=== PATIENT | male | born 2000 ===

== ENCOUNTER 2024-04-03 14:40 | Emergency (ER) | payer OTHER, SELFPAY ==
--- NOTE | ~2024-04-03 | XR_ITS ---
EXAMINATION: XR CHEST CLINICAL INFORMATION: Difficulty breathing COMPARISON: None available. TECHNIQUE: 2 views of the chest were obtained. FINDINGS: Lungs grossly clear. No pleural effusions. Heart and pulmonary vessels normal. XR/XR chest 2V IMPRESSION: No active disease.
[2024-04-03 14:53] VITALS: BP 126/67; PULSE 68; RESP 15; TEMP 36.7; O2SAT 98; BMI 18.1
[2024-04-03 16:00] VITALS: BP 116/49; PULSE 60; RESP 18; TEMP 36.8; O2SAT 99
--- NOTE | 2024-04-03 16:17 | ED_ITS ---
HPI - General Adult General Chief complaint: Headache Stated complaint: WEAK, WILLIS, MUSCLE SPASM/ NUMB AT WORK Time Seen by Provider: 04/03/24 14:53 Source: patient Mode of arrival: ambulatory Limitations: language barrier History of Present Illness ED Provider: Dr. Spencer HPI narrative: patient states at work he developed shortness of breath, he felt like he could not breath. He then developed perioral numbness, bilateral hand and feet numbness. After about 30 minutes he felt better. Patient denies cough or wheeze and states the he does not suffer from panic attacks or hyperventilation. Onset (ago): minute(s) Related Data Allergies Allergy/AdvReac Type Severity Reaction Status Date / Time No Known Allergies Allergy Verified 04/03/24 15:18 Review of Systems Review of Systems: Yes all other systems are reviewed and are negative Neurologic: Denies Sensory deficit (Neuro) [facility] Social History Social History Advance Directives: No Advance Directives Information Provided: No Physical Exam ED Vital Signs: Vital Signs - 24 hr 04/03/24 14:53 Temperature 98.0 F Pulse Rate 68 Respiratory Rate 15 Blood Pressure 126/67 Pulse Oximetry 98 Oxygen Delivery Method Room Air BMI result Body Mass Index 18.1 Const General: healthy appearing Nutritional Appearance: average body habitus Orientation/consciousness: oriented to person and patient oriented x3 Limitations: no limitations HENMT Head: Yes normal to inspection Ears: external ears normal General nose exam: Normal external nose present Mouth: Normal oral and palatal mucosa present and oropharynx normal Throat: Yes posterior oropharynx normal Eyes General: appearance normal, both eyes and all related structures Neck Neck: Yes normal visual inspection Chest Chest palpation & inspection: normal inspection of the chest Resp Auscultation: clear to auscultation bilaterally Cardio Jugular venous distension: no JVD Rate: regular rate Rhythm: regular rhythm Heart sounds: S1 normal heart sound present and S2 normal heart sound present GI Inspection: Yes normal to inspection Palpation (GI): Soft to palpation, nontender and No hepatosplenomegaly present Auscultation: normal bowel sounds General: Yes no CVA tenderness Back/Spine/Pelvis Back: no CVA tenderness Skin General skin exam: no rashes or lesions noted Neuro General: oriented to person and patient oriented x3 Cranial nerves: Yes CN's II-XII intact bilaterally Motor exam (neuro): 5/5 motor strength present throughout Sensory Exam: No Sensory deficit (Neuro) Extrem General: Yes normal to inspection Psych Appearance: grossly normal Course Reevaluation(s) Reevaluation #1: patient with hyperventilation and likely panic attack, will check xray and electrolytes and most likely will be discharged home. Labs still pending Time: 16:22 Medical Decision Making Differential Diagnosis Differential Diagnoses: The differential diagnosis associated with the presentation includes (hyperventilation, panic attack, electrolyte abnormality, pneumonia) Admission/Observation Consideration of admission/observation: Escalation of care including admission/observation considered (upon arrival patient was considered for admission) Independent Interpretation I performed an independent interpretation of an: Plain X-Ray (CXR no infiltrate) Independent Historian Clinical information obtained from an independent historian. History obtained from or confirmed by: Friend and EMS Prescription Management I considered prescription management with: Antibiotic (no evidence of pneumonia) Discharge Plan Discharge Clinical Impression: Hyperventilation Patient Disposition: Still a Patient Print Language: Yoruba
[2024-04-03 16:32] LABS: MANUAL DIFF FLAG NO
[2024-04-03 16:41] LABS: Basophils Absolute Auto 0.1 X10*3/uL (0.0-0.2); Basophils Percent Auto 0.8 % (0-2); Eosinophils Percent Auto 0.3 % (0-4); Hematocrit 43.1 % (42.0-52.0); Hemoglobin 14.6 g/dl (14.0-18.0); Imm Gran Abs Auto 0.02 X10*3/uL (0.00-0.03); Imm Gran Pct Auto 0.2 % (0.0-0.4); Lymphocytes Absolute Auto 1.5 X10*3/uL (1.2-4.9); Lymphocytes Percent Auto 17.7 % (20-40); Mean Corpuscular HGB Conc 33.9 g/dl (31.0-36.0); Mean Corpuscular Hemoglobin 29.3 pg (27.0-33.0); Mean Corpuscular Volume 86.5 fL (80.0-98.0); Mean Platelet Volume 10.6 fL (9.4-12.4); Monocytes Absolute Auto 0.6 X10*3/uL (0.1-1.2); Neutrophils Absolute Auto 6.4 x10*3/uL (2.0-8.3); Platelet Count 206 X10*3/uL (160-400); Red Blood Count 4.98 X10*6/uL (4.60-5.80); Red Cell Distribution Width 13.7 % (11.0-16.0); White Blood Count 8.7 X10*3/uL (4.8-10.8)
[2024-04-03 16:48] LABS: Anion Gap 9 (12-20); Blood Urea Nitrogen 14 mg/dL (9-16); Calcium 9.3 mg/dL (8.4-10.2); Carbon Dioxide 26 mmol/L (22-29); Chloride 109 mmol/L (96-108); Creatinine Clr Calc Pharmacy 72.9; Estimated Glomerular Filt Rate > 60; Glucose Random 84 mg/dL (60-115); Potassium 3.5 mmol/L (3.3-5.1); Sodium 140 mmol/L (135-145)
== END 2024-04-03 18:13 | disposition still patient (30) ==
PROVIDERS: Emergency Medicine; Emergency Provider Emergency Medicine
DX: R06.4 Hyperventilation (principal); R53.1 Weakness; R06.02 Shortness of breath; R20.0 Anesthesia of skin
CPT/HCPCS: 36415; 71046; 80048; 85025; 99283

== ENCOUNTER 2024-04-04 15:09 | Emergency (ER) | payer OTHER, SELFPAY ==
[2024-04-04 15:18] VITALS: BP 111/58; BP 118/74; PULSE 73; PULSE 80; RESP 18; TEMP 37.1; O2SAT 100; O2SAT 97; BMI 20.2
--- NOTE | 2024-04-04 15:46 | ED_ITS ---
HPI - SOB/Dyspnea General Chief Complaint: Dyspnea Stated Complaint: SOB WORSENING, SEEN Time Seen by Provider: 04/04/24 15:18 Source: patient Mode of arrival: ambulatory Limitations: no limitations History of Present Illness HPI Narrative: 21-year-old male presents for 2nd time in 2 days. Patient states he was at work when he had severe back pain started having rapid breathing and hyperventilation which has since resolved he did show me a picture is going on he denies any falls or injuries she notes she has been cough fever states he is feeling better at this time there is no falls no reason for his back pain. Related Data Allergies Allergy/AdvReac Type Severity Reaction Status Date / Time No Known Allergies Allergy Verified 04/04/24 15:23 Physical Exam Vital Signs: Vital Signs: Last Vital Signs Temp 98.7 F 04/04/24 15:18 Pulse 73 04/04/24 15:18 Resp 18 04/04/24 15:18 BP 111/58 L 04/04/24 15:18 Pulse Ox 97 04/04/24 15:18 O2 Del Method Room Air 04/04/24 15:18 BMI result Body Mass Index 20.2 Neurological exam: CN II- XII tested. Patient is alert and oriented to person place and time. Patient has no dysphagia or dysarthia, denies good vision in all four vision rudolph no nystagmus on exam, good strength to upper and lower extremities with normal reflexes to brachioradialis, wrist, patella and achilles. Negative romberg, good finger to nose and heel to edwards. General: Well-appearing well-nourished in no signs of distress HEENT: Normocephalic atraumatic Neck: No signs of JVD, no masses no tenderness or lymphadenopathy Cardiovascular: Regular rate and rhythm Respiratory: Clear to auscultation bilaterally Abdomen: Soft nontender no masses Extremities: Normal pedal pulses no signs of edema Skin: Dry warm no rashes Back: No tenderness full ROM Medical Decision Making Medical Decision Making MDM Narrative: Patient already had a workup yesterday his symptoms have resolved he showed me a video happened today I do still feel he is safe to go home I will discharge home once he is registered. Differential Diagnosis Differential Diagnoses: The differential diagnosis associated with the presentation includes Hyperventilation panic attack Discharge Plan Discharge Clinical Impression: Panic attack, Anxiety hyperventilation Patient Disposition: Home, Self-Care Instructions: Anxiety (ED), Hyperventilation (ED) Additional Instructions: You were seen to the emergency department for panic attack. You had rapid breathing which which resolved. If you have any other concerns please return to emergency department. Print Language: [place]
[2024-04-04 16:10] VITALS: BP 113/50; PULSE 69; RESP 18; TEMP 37.1; O2SAT 99
== END 2024-04-04 16:13 | disposition home or self-care (01) ==
PROVIDERS: Emergency Provider Student in an Organized Health Care Education/Training Program
DX: F41.0 Panic disorder [episodic paroxysmal anxiety] (principal); F41.9 Anxiety disorder, unspecified; R06.4 Hyperventilation; M54.9 Dorsalgia, unspecified
CPT/HCPCS: 99283

== ENCOUNTER 2024-04-05 14:22 | Outpatient (AMB) | payer OTHER, SELFPAY ==
--- NOTE | 2024-04-05 14:32 | MHC.OFFWIV ---
Intake Vital Signs 04/05/24 14:33 Height 5 ft 5 in Weight 121 lb BMI 20.1 BP 116/70 Blood Pressure Location Lt brachial Position Sitting Pulse 103 H Pulse Source Pulse Oximeter Temp 98.5 F Temp Source Temporal Artery Scan Pulse Oximetry (%) 99 Oxygen Delivery Method Room Air Intake Visit Reasons: shortness of breath, tensing of body- see com Intake Note: pt c/o SOB, body tensing. Seen at [facility] ED 04/03 and 04/04 Patient Tobacco Use Status: Never used Tobacco Allergies No Known Allergies Allergy (Verified 04/05/24 14:32) Do you need a note to return to daycare/school/sports/work: No HPI HPI Comments History of Present Illness Details 23 y/o male patient who presents to the walk in clinic with c/o SOB and difficulty breathing. Pt is accompanied by [id number]. Pt speaks [place]ese only. Per mother; Pt smoked some marijuana Monday - a friend of his bought it from a dispensary. Pt started having Seizure like symptoms , On/off. Describes muscle tightening, head and upper body shaking. Hyperventilating and feeling like his jaw and muscle locking. No postictal symptoms observed. No urinary or bowel incontinence. Pt able to recall and aware of his surrounding. No LOC and No tongue bitting. Pt was seen and evaluated at [facility] once and [facility] twice. He was immediately discharged with a diagnosis of Panic Attack. Pt lives home with step mother, father and GF. Denies any h/o heroine or Cocaine use. No alcohol use. No stress in the family. He moved from [place] this past December. [facility] Social History Patient Tobacco Use Status: Never used Tobacco Review of Systems Const All systems reviewed & are unremarkable except as noted in HPI and below Physical Exam Vital Signs: Last Vital Signs Temp 98.5 F 04/05/24 14:33 Pulse 103 H 04/05/24 14:33 BP 116/70 04/05/24 14:33 Pulse Ox 99 04/05/24 14:33 Oxygen Delivery Method Room Air 04/05/24 14:33 BMI result Body Mass Index 20.1 Const Other: Tonic like body movements. Shaking and muscle tightning. Able to regain alertness, able to understand and follow commands. Episodes lasting few minutes. Skin General skin exam: no rashes or lesions noted Psych Attitude: cooperative Assessment & Plan Assessment & Plan (1) SOB (shortness of breath): Code(s): R06.02 - Shortness of breath Plan: ECG Abnormal. But Pt was having an episode. Pt sent to ED via Ambulance. Coding Level of Care Code Est Pt Level 3 (35171) Diagnoses SOB (shortness of breath) R06.02 Time Spent (min) 15
[2024-04-05 14:33] VITALS: BP 116/70; PULSE 103; TEMP 36.9; O2SAT 99; BMI 20.1
== END 2024-04-05 15:50 | disposition home or self-care (01) ==
PROVIDERS: Visit Provider Nurse Practitioner Family
DX: R06.02 Shortness of breath (principal)
CPT/HCPCS: 99213

== ENCOUNTER 2024-04-15 14:45 | Outpatient (AMB) | payer OTHER, SELFPAY ==
--- NOTE | 2024-04-15 14:50 | MHC.PC.OV ---
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 Infection Control Rn Required: Yes Infection Control Rn Language: Emirati Accompanied by: Mother Allergies No Known Allergies Allergy (Verified 04/15/24 15:22) Medication List - Last Reviewed 04/15/24 by Beulah jacobsin (vitamin B12) 1,000 mcg PO DAILY paroxetine HCl 10 mg PO DAILY Tobacco use date assessed: 04/15/24 Dental Screening Dental Screen Date: 04/15/24 Did you have a dental visit in the last 12 months?: Yes Did you have a dental problem in the last 6 months where you did not have access to dental care?: No Was dental information given to patient?: Patient has dentist HPI HPI Comments History of Present Illness Details New patient Emirati-speaking only Accompanied by his mother Prior PCP:?He moved to [facility] from [place] in 12/2023. He did not have a PCP Last office visit/CPE: No history Acute issue(s): None He was recently evaluated and treated twice at [facility] ED, once at [facility] walk-in clinic, and once at [facility] ED for shortness of breath, difficulty breathing, and generalized stiffening and shaking without loss of consciousness. Imaging, including head CT and EEG, and labs were unremarkable. U tox was negative. His symptoms were deemed stress induced and was prescribed Praroxetine 10 mg and vitamin B12 1000 mcg daily at [facility] ED He notes that he has been taking Paroxetine as prescribed without adverse reactions. He reports improved symptoms anxiety/stress symptoms. His notes that the patients symptoms (difficultly breathing, shortness of breath, and generalized stiffening) would make him unable to physically function without assistance. She notes that the patient experienced those symptoms between 04/03/2024 and after he started taking Prozac on 04/08/2024. He notes that he generally eats healthy and sleeps well. He was lifting weights routinely until his recent symptoms No acute symptoms at this time PMHx: None SurgHx: None FHx: Dad: Asthma. MGM: Diabetes. PGM: Cardiovascular disease SocHx: Nonsmoker. Drinks 1 beer weekly . Smokes 1 gm cannabis 3-4 times weekly. 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 1. Little interest or pleasure in doing things: not at all 2. Feeling down, depressed, or hopeless: not at all 3. Trouble falling or staying asleep, or sleeping too much: several days 4. Feeling tired or having little energy: several days 5. Poor appetite or overeating: several days 6. Feeling bad about yourself - or that you are a failure or have let yourself or your family down: not at all 7. Trouble concentrating on things, such as reading the newspaper or watching television: not at all 8. Moving or speaking so slowly that other people could have noticed. Or the opposite - being so fidgety or restless that you have been moving around a lot more than usual: several days 9. Thoughts that you would be better off or of hurting yourself in some way: not at all Total score: 4 Depression Screening Interpretation: Negative Depression Screening Done: Yes Source: Developed by Drs. Kenyon Mascorro, Tita Zavala, Tre Segovia and colleagues, with an educational brian from [employer]. Thrive Questionnaire Date Thrive assessed: 04/15/24 I am a: Patient What is your living situation today?: I have a steady place to live Within the past 12 months, did the food you bought not last and you didn't have the money to get more?: Never true Within the past 12 months, did you worry whether your food would run out before you got money to buy more?: Never true Do you have trouble paying for medicines?: No Do you have trouble getting transportation to medical appointments?: No Do you have trouble paying your heating and electricity bill?: No Do you have trouble taking care of your child, family member or friend?: No Do you have trouble with day-to-day activities such as bathing, preparing meals, shopping, managing finances, etc.?: No Are you currently unemployed and looking for a job?: No Are you interested in more education?: No Please select the resources that you would like help with: None Currently or been in a relationship where the following occur: No concerns reported THRIVE Score: 0 AUDIT C Alcohol Use Questionnaire (AUDIT-C) 1. How often do you have a drink containing alcohol?: 2-4 times a month 2. How many drinks containing alcohol do you have on a typical day when you are drinking?: 1 or 2 3. How often do you have six or more drinks on one occasion?: Never Total Score: 2 Score Reviewed/Action Taken: Yes BALJEET-7 AMB Questionnaire BALJEET-7 Date BALJEET - 7 assessed: 04/15/24 Feeling nervous, anxious, or on edge: 1 = Several days Not being able to stop or control worryin = Not at all Worrying too much about different things: 0 = Not at all Trouble relaxin = Several days Being so restless that it is hard to sit still: 1 = Several days Becoming easily annoyed or irritable: 1 = Several days Feeling afraid as if something awful might happen: 1 = Several days Total BALJEET-7 score (0-4 normal; 5-9 mild; 10-14 moderate; 15-21 severe): 5 Source: Developed by Drs. Kenyon Mascorro, Tita Zavala, Tre Segovia and colleagues, with an educational brian from [employer]. BALJEET-7 Assessment Billing BALJEET-7 Assessment Tool: BALJEET-7 Assessment 53530 Review of Systems Const Details: Denies chills, Denies fatigue, Denies fever(s), Denies headache(s) and Denies weakness HEENT Denies change in vision, Denies dizziness, Denies headache(s), Denies hearing loss, Denies nasal congestion, Denies sinus pain, Denies sinus pressure and Denies sore throat Card Denies chest pain, Denies lightheadedness, Denies dyspnea and Denies other (palpitations) Resp Denies cough, Denies dyspnea and Denies wheezing GI Denies abdominal pain, Denies melena, Denies hematochezia, Denies change in bowel habits, Denies dyspepsia and Denies nausea Denies hematuria and Denies dysuria Musc Denies abnormal gait, Denies myalgias, Denies arthralgias, Denies numbness and Denies tingling Skin/Breast Denies rash, Denies unusual bruising and Denies wounds Neuro Denies abnormal gait, Denies dizziness, Denies headache(s), Denies memory loss, Denies numbness, Denies Sensory deficit (Neuro), Denies tingling and Denies weakness Psych Denies anxiety, Denies depression and Denies memory loss Endo Denies cold intolerance, Denies fatigue, Denies heat intolerance, Denies polydipsia and Denies polyuria Zeferino/Lymph Denies easy bleeding and Denies easy bruising Aller/Immun Denies wheezing Physical exam (Primary Care) Vital Signs: Last Vital Signs Temp 98.1 F 04/15/24 15:02 Pulse 70 04/15/24 15:02 Resp 16 04/15/24 15:02 BP 128/62 04/15/24 15:02 Pulse Ox 98 04/15/24 15:02 Oxygen Delivery Method Room Air 04/15/24 15:02 BMI result Body Mass Index 19.0 Tobacco/Smoking Status: Tobacco use Status Tobacco use date assessed 04/15/24 04/15/24 15:02 Patient Tobacco Use Status Never used Tobacco 04/15/24 15:02 e-Cigarette/Vaping Use Never Used 04/15/24 15:02 PHQ-9: PHQ-9 Score PHQ-9: Total score 4 04/15/24 15:08 Depression Screening Interpretation: Negative Thrive Assessment: Date of Thrive Assessment Date Thrive assessed 04/15/24 04/15/24 15:08 Currently or been in a relationship where the following occur: No concerns reported Const Other: General: no acute distress, well developed, alert and awake Nutritional Appearance: well nourished Orientation/consciousness: patient oriented x3 HENMT Head: Yes normocephalic and Yes atraumatic Ears: hearing grossly normal bilaterally and TM's normal bilaterally General nose exam: Normal external nose present and Normal nares present Mouth: Normal oral and palatal mucosa present and moist mucous membranes Teeth and gingiva: dentition normal Throat: Yes oropharynx normal Eyes Pupils: Equal, round and reactive pupils present and Pupil accommodation reflex normal EOM: EOMs intact bilaterally Neck Neck: Yes normal visual inspection, Yes no lymphadenopathy and Yes trachea midline Thyroid: Thyroid normal Carotids: no bruits Lymphatic: no lymphadenopathy noted Chest Chest palpation & inspection: normal inspection of the chest Resp Effort & Inspection: normal respiratory effort Auscultation: clear to auscultation bilaterally Cardio Rate: regular rate Rhythm: regular rhythm Heart sounds: S1 normal heart sound present, S2 normal heart sound present, no gallops, no murmurs and no rubs Bruits: no abdominal aortic bruits and no carotid bruits GI Palpation (GI): No Abdominal aortic bruit present, Soft to palpation, nontender, No hepatosplenomegaly present and No Rebound tenderness present Auscultation: normal bowel sounds General: Yes no CVA tenderness Back/Spine/Pelvis Back: no CVA tenderness Cervical Spine: cervical ROM normal and No Cervical spine tenderness Thoracic/Lumbar Spine: thoraco-lumbar ROM normal, No pain with thoraco-lumbar ROM, No thoracic spinal tenderness and No lumbar spinal tenderness Skin General: warm and dry. Normal skin color. Normal skin turgor Lesions: no lesions Rashes: no rashes Trauma: no lacerations or abrasions Wounds: no wounds Nails: normal Neuro General: patient oriented x3, gait normal and CN's II-XI intact bilaterally Cranial nerves: Yes Equal, round and reactive pupils present Cognition (Neuro): normal cognition Gait exam (Neuro): Normal gait present Motor exam (neuro): 5/5 motor strength present throughout Sensory Exam: No Sensory deficit (Neuro) Deep tendon reflexes (DTR's): Right patellar reflex intensity grade: 2+ and Left patellar reflex intensity grade: 2+ Extrem General: Yes normal to inspection, No edema and No calf tenderness Psych Appearance: grossly normal Affect: normal affect Attitude: cooperative Thought process: Normal thought process present Assessment and Plan Assessment & Plan (1) Panic attack: Code(s): F41.0 - Panic disorder [episodic paroxysmal anxiety] Plan: Reports controlled symptoms BALJEET-7 score reveals mild anxiety. PHQ-9 score is normal Continue to take paroxetine 10 mg daily Routine exercise encouraged Advised to avoid smoking cannabis to prevent worsening symptoms Encouraged to get lab work done a few days before his next visit Follow-up in 1 month or sooner with worsening or new symptoms Verbalized understanding and agreed with the treatment plan (2) Normal physical examination, routine: Code(s): Z00.00 - Encounter for general adult medical examination without abnormal findings Plan: No significant physical restrictions or limitations noted Continue current treatment regimen Healthy diet and routine exercise encouraged Advised to get lab work done follow-up for panic attack in a month or sooner with symptoms or concerns Verbalized understanding and agreed with the treatment plan (3) Laboratory tests ordered as part of a complete physical exam (CPE): Code(s): Z00.00 - Encounter for general adult medical examination without abnormal findings Plan: Fasting labs ordered as part of a complete physical exam. Advised to fast for at least 10 hours before getting labs drawn. May drink water Verbalized understanding and agreed with treatment plan. Orders: Orders Lipid Panel Today Z00.00 - Encounter for general adult medical examination without abnormal findings UA CC w/rflx Micro + Cult Today Z00.00 - Encounter for general adult medical examination without abnormal findings Coding Level of Care Code New Pt Level 4 (03785) New Pt Prev Care 18-39yr(43757 Diagnoses Panic attack F41.0 Normal physical examination, routine Z00.00 Laboratory tests ordered as part of a complete physical exam (CPE) Z00.00 Additional Codes BALJEET-7 Assessment Billing - BALJEET-7 Assessment Tool: BALJEET-7 Assessment [id number] ([id number])
[2024-04-15 15:02] VITALS: BP 128/62; PULSE 70; RESP 16; TEMP 36.7; O2SAT 98; BMI 19.0
== END 2024-04-15 16:02 | disposition home or self-care (01) ==
PROVIDERS: Visit Provider Nurse Practitioner Family
DX: Z00.00 Encounter for general adult medical examination without abnormal findings (principal); F41.0 Panic disorder [episodic paroxysmal anxiety]
CPT/HCPCS: 96127; 99395

== ENCOUNTER 2024-05-04 10:24 | Outpatient (REF) | payer OTHER, SELFPAY ==
[2024-05-04 11:33] LABS: Cholesterol 134 mg/dL (<200); HDL Cholesterol 49 mg/dL (>40); LDL Cholesterol Calculated 74 mg/dL (<100); Triglycerides 59 mg/dL (<150)
[2024-05-07 10:55] LABS: Thyroid Stimulating Hormone 0.96 uIU/mL (0.32-4.0)
== END 2024-05-04 10:25 | disposition home or self-care (01) ==
LOC: HO.HMGCLDS 10:24
PROVIDERS: PCP Nurse Practitioner Family; Visit Provider Nurse Practitioner Family
DX: Z00.00 Encounter for general adult medical examination without abnormal findings (principal)
CPT/HCPCS: 36415; 80061; 84443

== ENCOUNTER 2024-05-07 09:25 | Outpatient (REF) | payer OTHER, SELFPAY ==
[2024-05-07 13:26] LABS: Appearance Urine Clear; Color Urine Yellow; Glucose Urine UA Negative (Negative); Leukocyte Esterase Urine Negative (Negative); Nitrite Urine Negative (Negative); Urine Blood Negative (Negative); Urine Ketones Negative (Negative); Urine Protein Negative (Neg-Trace)
== END 2024-05-07 09:26 | disposition home or self-care (01) ==
LOC: HO.HMGCLNP 09:25
PROVIDERS: Visit Provider Nurse Practitioner Family
DX: Z00.00 Encounter for general adult medical examination without abnormal findings (principal)
CPT/HCPCS: 81003

== ENCOUNTER 2024-05-17 11:35 | Outpatient (AMB) | payer OTHER, SELFPAY ==
--- NOTE | 2024-05-17 11:43 | MHC.PC.OV ---
Vital Signs 05/17/24 11:48 Height 5 ft 5 in Weight 111 lb 5 oz BMI 18.5 BP 102/68 Blood Pressure Location Lt brachial Position Sitting Respiration 16 Pulse 54 Pulse Source Pulse Oximeter Temp 97.8 F Temp Source Oral Pulse Oximetry (%) 97 Oxygen Delivery Method Room Air Intake Visit Reasons: 1 mos panic attacks, labs Intake Note: patient here for 1 month follow up on panic attacks and labs. Capability Lead Required: Yes Allergies No Known Allergies Allergy (Verified 05/17/24 12:26) Medication List - Last Reconciled 05/17/24 by Mariam Tan CNP mecobalamin (vitamin B12) 1,000 mcg PO DAILY paroxetine HCl 10 mg PO DAILY 30 days Tobacco use date assessed: 05/17/24 Dental Screening Dental Screen Date: 05/17/24 Did you have a dental visit in the last 12 months?: Yes Did you have a dental problem in the last 6 months where you did not have access to dental care?: No Was dental information given to patient?: Patient has dentist HPI HPI Comments History of Present Illness Details 23-year-old male presents for panic attack follow-up He admits to taking paroxetine as prescribed without adverse reactions. He notes that he has not experienced any anxiety symptoms since his last episode He notes that he generally eats healthy and sleeps well. He is physically active at his workplace but has not been doing structured physical exercise He offers no complaints and denies acute symptoms at this time [facility] Family History (Updated 04/15/24 @ 15:18 by Beulah Ferreira) Father Asthma Maternal Grandmother Diabetes Paternal Grandmother Cardiovascular disease Social History (Updated 04/15/24 @ 15:02 by Beulah Ferreira) Housing: House Patient Tobacco Use Status: Never used Tobacco e-Cigarette/Vaping Use: Never Used Second Hand Smoke Exposure: No Substance Use Type: Marijuana service: No Current occupational status: employed 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 1. Little interest or pleasure in doing things: not at all 2. Feeling down, depressed, or hopeless: not at all 3. Trouble falling or staying asleep, or sleeping too much: several days 4. Feeling tired or having little energy: several days 5. Poor appetite or overeating: not at all 6. Feeling bad about yourself - or that you are a failure or have let yourself or your family down: not at all 7. Trouble concentrating on things, such as reading the newspaper or watching television: not at all 8. Moving or speaking so slowly that other people could have noticed. Or the opposite - being so fidgety or restless that you have been moving around a lot more than usual: not at all 9. Thoughts that you would be better off or of hurting yourself in some way: not at all Total score: 2 Depression Screening Interpretation: Negative Depression Screening Done: Yes 26575 - PHQ-9 Billing: Yes Source: Developed by Drs. Kenyon Mascorro, Tita Zavala, Tre Segovia and colleagues, with an educational brian from [employer]. Thrive Questionnaire Date Thrive assessed: 04/15/24 AUDIT C Alcohol Use Questionnaire (AUDIT-C) 1. How often do you have a drink containing alcohol?: 2-3 times a week 2. How many drinks containing alcohol do you have on a typical day when you are drinking?: 1 or 2 3. How often do you have six or more drinks on one occasion?: Never Total Score: 3 Score Reviewed/Action Taken: Yes BALJEET-7 AMB Questionnaire BALJEET-7 Date BALJEET - 7 assessed: 05/17/24 Feeling nervous, anxious, or on edge: 1 = Several days Not being able to stop or control worryin = Not at all Worrying too much about different things: 0 = Not at all Trouble relaxin = Not at all Being so restless that it is hard to sit still: 0 = Not at all Becoming easily annoyed or irritable: 0 = Not at all Feeling afraid as if something awful might happen: 0 = Not at all Total BALJEET-7 score (0-4 normal; 5-9 mild; 10-14 moderate; 15-21 severe): 1 Source: Developed by Drs. Kenyon Mascorro, Tita Zavala, Tre Segovia and colleagues, with an educational brian from [employer]. BALJEET-7 Assessment Billing BALJEET-7 Assessment Tool: BALJEET-7 Assessment 09562 Review of Systems Const Details: Const Denies chills, Denies fatigue, Denies fever(s), Denies headache(s) and Denies weakness ENT Denies dizziness and Denies headache(s) Card Denies chest pain, Denies lightheadedness, Denies dyspnea and Denies other (Palpitations) Resp Denies cough, Denies dyspnea, Denies wheezing and Denies other ( shortness of breath) GI Denies abdominal pain, Denies melena, Denies hematochezia, Denies change in bowel habits, Denies dyspepsia and Denies nausea Denies hematuria and Denies dysuria Musc Denies abnormal gait, Denies myalgias, Denies arthralgias, Denies numbness and Denies tingling Skin/Breast Denies rash, Denies unusual bruising and Denies wounds Neuro Denies abnormal gait, Denies dizziness, Denies headache(s), Denies memory loss, Denies numbness, Denies Sensory deficit (Neuro), Denies tingling and Denies weakness Psych Denies anxiety, Denies depression, Denies memory loss Endo Denies cold intolerance, Denies fatigue, Denies heat intolerance, Denies polydipsia and Denies polyuria Aller/Immun Denies wheezing Physical exam (Primary Care) Vital Signs: Last Vital Signs Temp 97.8 F 05/17/24 11:48 Pulse 54 05/17/24 11:48 Resp 16 05/17/24 11:48 BP 102/68 05/17/24 11:48 Pulse Ox 97 05/17/24 11:48 Oxygen Delivery Method Room Air 05/17/24 11:48 BMI result Body Mass Index 18.5 Tobacco/Smoking Status: Tobacco use Status Tobacco use date assessed 05/17/24 05/17/24 11:53 Patient Tobacco Use Status Never used Tobacco 05/17/24 11:45 e-Cigarette/Vaping Use Never Used 05/17/24 11:45 PHQ-9: PHQ-9 Score PHQ-9: Total score 2 05/17/24 11:53 Depression Screening Interpretation: Negative Thrive Assessment: Date of Thrive Assessment Date Thrive assessed 04/15/24 05/17/24 11:45 Const Other: General: no acute distress and well developed Nutritional Appearance: well nourished Orientation/consciousness: patient oriented x3 HENMT Head: Yes normocephalic and Yes atraumatic Eyes General: appearance normal, both eyes and all related structures Pupils: Equal, round and reactive pupils present EOM: EOMs intact bilaterally Resp Effort & Inspection: normal respiratory effort Auscultation: clear to auscultation bilaterally Cardio Rate: regular rate Rhythm: regular rhythm Heart sounds: S1 normal heart sound present, S2 normal heart sound present, no gallops, no murmurs and no rubs GI Palpation (GI): No Abdominal aortic bruit present, Soft to palpation, nontender, No hepatosplenomegaly present and No Rebound tenderness present Auscultation: normal bowel sounds General: Yes no CVA tenderness Back/Spine/Pelvis Back: no CVA tenderness Cervical Spine: cervical ROM normal and No Cervical spine tenderness Thoracic/Lumbar Spine: thoraco-lumbar ROM normal, No pain with thoraco-lumbar ROM, No thoracic spinal tenderness and No lumbar spinal tenderness Extrem General: Yes normal to inspection, No edema and No calf tenderness Skin General: warm and dry. Normal skin color. Normal skin turgor Neuro General: patient oriented x3, gait normal and no focal neuro deficit Cranial nerves: Yes Equal, round and reactive pupils present Cognition (Neuro): normal cognition Gait exam (Neuro): Normal gait present Sensory Exam: No Sensory deficit (Neuro) Psych Appearance: grossly normal Affect: normal affect Attitude: cooperative Thought process: Normal thought process present Assessment and Plan Assessment & Plan (1) Panic attack: Code(s): F41.0 - Panic disorder [episodic paroxysmal anxiety] Plan: Controlled PHQ-9 and BALJEET-7 scores are normal Continue current treatment regimen Routine exercise encouraged Follow-up in 3 months or sooner with symptoms or concerns Verbalized understanding and agreed with the treatment plan Coding Level of Care Code Est Pt Level 3 (64720) Diagnoses Panic attack F41.0 Additional Codes BALJEET-7 Assessment Billing - BALJEET-7 Assessment Tool: BALJEET-7 Assessment 54693 ([id number])
[2024-05-17 11:48] VITALS: BP 102/68; PULSE 54; RESP 16; TEMP 36.6; O2SAT 97; BMI 18.5
== END 2024-05-17 12:32 | disposition home or self-care (01) ==
PROVIDERS: Visit Provider Nurse Practitioner Family
DX: F41.0 Panic disorder [episodic paroxysmal anxiety] (principal)
CPT/HCPCS: 96127; 99213

== ENCOUNTER 2024-08-16 11:12 | Outpatient (AMB) | payer OTHER, SELFPAY ==
--- NOTE | 2024-08-16 11:37 | A.OFFPC_ITS ---
Vital Signs 08/16/24 11:39 Height 5 ft 5 in Weight 107 lb 4 oz BMI 17.8 BP 127/60 Blood Pressure Location Rt brachial Position Sitting Respiration 16 Pulse 51 Pulse Source Pulse Oximeter Temp 97.4 F Temp Source Oral Pulse Oximetry (%) 97 Oxygen Delivery Method Room Air Intake Visit Reasons: 3 mos panic attacks Intake Note: patient here for follow up on panic attacks Molecular Modeler Required: Yes Molecular Modeler Language: Access Consultant Name: [id number] Information Interpreted: non-clinical & clinical Allergies No Known Allergies Allergy (Verified 08/16/24 12:07) Medication List - Last Reconciled 08/16/24 by Mariam Tan CNP paroxetine HCl 10 mg PO DAILY 30 days Tobacco use date assessed: 08/16/24 Dental Screening Dental Screen Date: 08/16/24 Did you have a dental visit in the last 12 months?: Yes Did you have a dental problem in the last 6 months where you did not have access to dental care?: No Was dental information given to patient?: Patient has dentist HPI HPI Comments History of Present Illness Details 23-year-old male presents for panic jenny ck follow-up. He admits to taking paroxetine without adverse reactions. He notes that he was not compliant and took the medication 3-4 times weekly instead of daily as prescribed; he was experimenting if his symptoms will be controlled without the medication. He has been taking the medication daily as prescribed since his recent hospital discharge. He notes that he experienced anxiety attack 5 days ago (was shaking) and was evaluated at [facility] ED. Labs were performed with resulted unremarkable. He became calmed and was discharged home with no change to his current treatment regimen. He notes that he generally eats healthy and sleeps well. He is physically active at his workplace but has not been doing structured physical exercise. He notes that he noticed the skin of his face has been breaking out. He denies using razor for shaving. Interpretation by professional cloth trimmer hand via electronic tablet. 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 1. Little interest or pleasure in doing things: not at all 2. Feeling down, depressed, or hopeless: not at all 3. Trouble falling or staying asleep, or sleeping too much: several days 4. Feeling tired or having little energy: several days 5. Poor appetite or overeating: not at all 6. Feeling bad about yourself - or that you are a failure or have let yourself or your family down: not at all 7. Trouble concentrating on things, such as reading the newspaper or watching television: not at all 8. Moving or speaking so slowly that other people could have noticed. Or the opposite - being so fidgety or restless that you have been moving around a lot more than usual: not at all 9. Thoughts that you would be better off or of hurting yourself in some way: not at all Total score: 2 Depression Screening Interpretation: Negative Depression Screening Done: Yes 55882 - PHQ-9 Billing: Yes Source: Developed by Drs. Kenyon Mascorro, Tita Zavala, Tre Segovia and colleagues, with an educational brian from [employer]. Thrive Questionnaire Date Thrive assessed: 08/16/24 I am a: Patient What is your living situation today?: I have a steady place to live Within the past 12 months, did the food you bought not last and you didn't have the money to get more?: Never true Within the past 12 months, did you worry whether your food would run out before you got money to buy more?: Never true Do you have trouble paying for medicines?: No Do you have trouble getting transportation to medical appointments?: No Do you have trouble paying your heating and electricity bill?: No Do you have trouble taking care of your child, family member or friend?: No Do you have trouble with day-to-day activities such as bathing, preparing meals, shopping, managing finances, etc.?: No Are you currently unemployed and looking for a job?: No Are you interested in more education?: Yes Please select the resources that you would like help with: None Currently or been in a relationship where the following occur: I choose not to answer THRIVE Score: 0 AUDIT C Alcohol Use Questionnaire (AUDIT-C) 1. How often do you have a drink containing alcohol?: 2-4 times a month 2. How many drinks containing alcohol do you have on a typical day when you are drinking?: 1 or 2 3. How often do you have six or more drinks on one occasion?: Never Total Score: 2 Score Reviewed/Action Taken: Yes BALJEET-7 AMB Questionnaire BALJEET-7 Date BALJEET - 7 assessed: 08/16/24 Feeling nervous, anxious, or on edge: 0 = Not at all Not being able to stop or control worryin = Not at all Worrying too much about different things: 1 = Several days Trouble relaxin = Several days Being so restless that it is hard to sit still: 0 = Not at all Becoming easily annoyed or irritable: 0 = Not at all Feeling afraid as if something awful might happen: 0 = Not at all Total BALJEET-7 score (0-4 normal; 5-9 mild; 10-14 moderate; 15-21 severe): 2 Source: Developed by Drs. Kenyon Mascorro, Tita Zavala, Tre Segovia and colleagues, with an educational brian from [employer]. BALJEET-7 Assessment Billing BALJEET-7 Assessment Tool: BALJEET-7 Assessment 68876 Review of Systems Const Details: Const Denies chills, Denies fatigue, Denies fever(s), Denies headache(s) and Denies weakness ENT Denies dizziness and Denies headache(s) Card Denies chest pain, Denies lightheadedness, Denies dyspnea and Denies other (Palpitations) Resp Denies cough, Denies dyspnea, Denies wheezing and Denies other ( shortness of breath) GI Denies abdominal pain, Denies melena, Denies hematochezia, Denies change in bowel habits, Denies dyspepsia and Denies nausea Denies hematuria and Denies dysuria Musc Denies abnormal gait, Denies myalgias, Denies arthralgias, Denies numbness and Denies tingling Skin/Breast Reports as per HPI Neuro Denies abnormal gait, Denies dizziness, Denies headache(s), Denies memory loss, Denies numbness, Denies Sensory deficit (Neuro), Denies tingling and Denies weakness Psych Denies anxiety, Denies depression, Denies memory loss Endo Denies cold intolerance, Denies fatigue, Denies heat intolerance, Denies polydipsia and Denies polyuria Aller/Immun Denies wheezing Physical exam (Primary Care) Vital Signs: Last Vital Signs Temp 97.4 F 08/16/24 11:39 Pulse 51 08/16/24 11:39 Resp 16 08/16/24 11:39 BP 127/60 08/16/24 11:39 Pulse Ox 97 08/16/24 11:39 Oxygen Delivery Method Room Air 08/16/24 11:39 BMI result Body Mass Index 17.8 Tobacco/Smoking Status: Tobacco use Status Tobacco use date assessed 08/16/24 08/16/24 11:43 Patient Tobacco Use Status Never used Tobacco 08/16/24 11:43 e-Cigarette/Vaping Use Never Used 08/16/24 11:43 PHQ-9: PHQ-9 Score PHQ-9: Total score 2 08/16/24 12:03 Depression Screening Interpretation: Negative Thrive Assessment: Date of Thrive Assessment Date Thrive assessed 08/16/24 08/16/24 11:43 Currently or been in a relationship where the following occur: I choose not to answer Const Other: General: no acute distress and well developed Nutritional Appearance: well nourished Orientation/consciousness: patient oriented x3 HENMT Head: Yes normocephalic and Yes atraumatic Eyes General: appearance normal, both eyes and all related structures Pupils: Equal, round and reactive pupils present EOM: EOMs intact bilaterally Resp Effort & Inspection: normal respiratory effort Auscultation: clear to auscultation bilaterally Cardio Rate: regular rate Rhythm: regular rhythm Heart sounds: S1 normal heart sound present, S2 normal heart sound present, no gallops, no murmurs and no rubs GI Palpation (GI): No Abdominal aortic bruit present, Soft to palpation, nontender, No hepatosplenomegaly present and No Rebound tenderness present Auscultation: normal bowel sounds General: Yes no CVA tenderness Back/Spine/Pelvis Back: no CVA tenderness Cervical Spine: cervical ROM normal and No Cervical spine tenderness Thoracic/Lumbar Spine: thoraco-lumbar ROM normal, No pain with thoraco-lumbar ROM, No thoracic spinal tenderness and No lumbar spinal tenderness Extrem General: Yes normal to inspection, No edema and No calf tenderness Skin General: warm and dry. Normal skin color. Normal skin turgor Lesions: Slight red, slightly raised bumps noted to the jaws, consistent with acne Rashes: No rash Trauma: no lacerations or abrasions Wounds: no wounds Nails: normal Neuro General: patient oriented x3, gait normal and no focal neuro deficit Cranial nerves: Yes Equal, round and reactive pupils present Cognition (Neuro): normal cognition Gait exam (Neuro): Normal gait present Sensory Exam: No Sensory deficit (Neuro) Psych Appearance: grossly normal Affect: normal affect Attitude: cooperative Thought process: Normal thought process present Coding Level of Care Code Est Pt Level 4 (26963) Diagnoses Generalized anxiety disorder F41.1 Acne L70.9 Additional Codes BALJEET-7 Assessment Billing - BALJEET-7 Assessment Tool: BALJEET-7 Assessment 92670 ([id number]) PHQ-9 - 36425 - PHQ-9 Billing: Yes ([id number]) Assessment & Plan Assessment & Plan (1) Generalized anxiety disorder: Code(s): F41.1 - Generalized anxiety disorder Category: Medical Plan: No acute symptoms. BALJEET-7 in PHQ-9 scores are normal. Continue current treatment regimen. Emphasized importance of taking fluoxetine as prescribed. Routine exercise encouraged. Follow-up in 3 months or sooner with symptoms or concerns. Verbalized understanding and agreed with treatment plan. (2) Acne: Code(s): L70.9 - Acne, unspecified Category: Medical Plan: Slight red, slightly raised bumps noted to the jaws, consistent with acne. B enzoyl peroxide cream ordered. Advised to use as prescribed. Avoid using razor for shaving. Follow-up with worsening or new signs and symptoms verbalized understanding and agreed with treatment plan. Medications: New benzoyl peroxide 10% (Acne Treatment (benzoyl peroxide)) 1 appl topical BID 28 grams 0RF
[2024-08-16 11:39] VITALS: BP 127/60; PULSE 51; RESP 16; TEMP 36.3; O2SAT 97; BMI 17.8
== END 2024-08-16 12:22 | disposition home or self-care (01) ==
PROVIDERS: PCP Nurse Practitioner Family; Visit Provider Nurse Practitioner Family
DX: F41.1 Generalized anxiety disorder (principal); L70.9 Acne, unspecified

== ENCOUNTER → 2024-08-16 11:12 | Outpatient (BNVA) | payer OTHER, SELFPAY | PROVIDERS: PCP Nurse Practitioner Family; Visit Provider Nurse Practitioner Family | DX: F41.1 Generalized anxiety disorder (principal); L70.9 Acne, unspecified | CPT/HCPCS: 96127; 99212 ==